=== PATIENT | female | born 1950 | race Caucasian/White ===

== ENCOUNTER 2016-12-04 18:48 | Emergency (ER) | payer OTHER ==
[~2016-12-04] VITALS: Ht 160 cm; Wt 55.8 kg
[~2016-12-04 18:48] MED LIST: AMOXICILLIN875 M1 PO; ANTIVERT25 MG PO; EXTENDED PHENY100 MG PO; FLEXERIL10 MG PO; HYDROXYZINE50 MG PO; MOTRIN 600 MG600 MG PO; PREDNICOT20 MG PO
--- NOTE | 2016-12-04 19:57 | ED GENERAL ADULT ---
History of Present Illness General Chief Complaint: General Adult Stated Complaint: "I FEEL CONFUSED AT TIMES" Source: patient Exam Limitations: no limitations Vital Signs & Intake/Output Vital Signs & Intake/Output Vital Signs Date Time Temp Pulse Resp B/P Pulse O2 O2 Flow FiO2 Ox Delivery Rate 12/04 2135 98.1 74 18 122/70 96 Room Air 12/04 1900 97.3 80 20 116/75 97 Room Air ED Intake and Output 12/05 0000 12/04 1200 Intake Total Output Total Balance Patient 123 lb Weight Allergies Coded Allergies: NO KNOWN ALLERGIES (12/04/16) Reconcile Medications Aspirin (Ecotrin*) 81 MG TABLET.DR 1 TAB PO DAILY HEART/BLOOD (Reported) Linagliptin (Tradjenta) 5 MG TABLET 1 TAB PO DAILY DM (Reported) Lisinopril 5 MG TABLET 1 TAB PO DAILY BP (Reported) Phenytoin Sodium Extended 100 MG CAPSULE 2 CAP PO BID SEIZURES (Reported) Triage Note: TRIAGE: PT TO ER C/C "I'M ON HIGH BLOOD PRESSURE. I READ IT LAST NIGHT. SIDE EFFECTS ARE TIRED. I FEEL TIRED A LOT. OTHER SIDE EFFECTS ARE WEAKNESS AND I FEEL WEAK A LOT. ALSO I FEEL CONFUSED AT TIMES." DENIES FEELING CONFUSED AT PRESENT. DENIES ANY PAIN. ALSO REPORTS R EAR "MAKES A WEIRD SOUND AT TIMES, IT FEELS BOUNCY". Triage Nurses Notes Reviewed? yes Onset: Abrupt Duration: gone now, intermittent Timing: remote history Injury Environment: home Severity: moderate Severity Numbers: 5 No Modifying Factors: none HPI: Patient is a 66-year-old female with a past medical history of hypertension, type 2 diabetes, and seizure disorder currently compliant with Dilantin who presents to emergency room with a one year history of lightheaded sensation and feeling off and generalized weakness. Patient states that symptoms have begun since she was prescribed lisinopril about a year ago by her primary care doctor for blood pressure. Patient states that when she wakes up every morning she gets up and feels lightheaded and dizzy and has had complaints of weakness. Blood pressure is unknown at this time however she does fingerstick for blood glucose and noted to have normal ranges per patient Patient states that as she eats breakfast and food and as time goes on throughout the day she feels much more improved. Denies any current fever chills headache pain neck stiffness chest pain arm pain jaw pain nausea vomiting paresthesia cough hemoptysis. Patient states that she was reading online of the adverse reactions to lisinopril and she became concerned and this is why patient Presents the emergency room Denies any dysuria hematuria vaginal bleeding vaginal discharge (CHIRAG ZAMBRANO) Past History Travel History Traveled to [place] past 21 day No Medical History Any Pertinent Medical History? see below for history Neurological: seizure EENT: NONE Cardiovascular: hypertension Respiratory: NONE Gastrointestinal: NONE Hepatic: NONE Renal: NONE Musculoskeletal: NONE Psychiatric: NONE Endocrine: diabetes Blood Disorders: NONE Cancer(s): NONE BUSINESS INTELLIGENCE ANALYST/Reproductive: NONE Surgical History Surgical History: non-contributory Psychosocial History Who do you live with Son Services at Home None What is your primary language Azeri Tobacco Use: Current Daily Use Daily Tobacco Use Amount/Type: => 5 Cigarettes daily ETOH Use: denies use Illicit Drug Use: denies illicit drug use Family History Hx Contributory? No (CHIRAG ZAMBRANO) Review of Systems Review of Systems Constitutional: Reports: see HPI, weakness. EENTM: Reports: no symptoms. Respiratory: Reports: no symptoms. Cardiovascular: Reports: no symptoms. GI: Reports: no symptoms. Genitourinary: Reports: no symptoms. Musculoskeletal: Reports: no symptoms. Skin: Reports: no symptoms. Neurological/Psychological: Reports: no symptoms. Hematologic/Endocrine: Reports: no symptoms. Immunologic/Allergic: Reports: no symptoms. All Other Systems: Reviewed and Negative (CHIRAG ZAMBRANO) Physical Exam Physical Exam General Appearance: no apparent distress, alert, comfortable Comments: Well-developed well-nourished person in no acute distress HEENT: Normal EENT exam, extraocular motion intact, no nystagmus. Pupils equally round and reactive to light and accommodation. Nose is atraumatic. External auditory canal and Tympanic membranes clear. Pharynx normal. No swelling or edema. Neck: Supple, no lymphadenopathy, normal range of motion without pain or tenderness Back: Nontender, no CVA tenderness. Cardiovascular: Regular rate and rhythms no murmurs rubs or gallops, normal JVP Respiratory: Chest nontender. No respiratory distress.breath sounds clear to auscultation bilaterally Abdomen: Soft, nontender nondistended, no appreciable organomegaly. Normal bowel sounds. No ascites Extremity: No edema, no calf tenderness to palpation, normal and equal pulses. Neuro: Alert oriented x3, motor sensory normal, cranial nerves II through XII grossly intact. Skin: No appreciable rash on exposed skin, skin is warm and dry. Psych: Mood and affect is normal, memory and judgment is normal. Core Measures ACS in differential dx? No CVA/TIA Diagnosis: No Severe Sepsis Present: No Septic Shock Present: No (CHIRAG ZAMBRANO) Progress Differential Diagnoses I considered the following diagnoses in my evaluation of the patient: [ electrolyte abnormality, cancer, adverse drug reaction, cardiac arrhythmia,] Plan of Care: Orders Procedure Date/time Status EKG 12/04 2040 Active MAGNESIUM 12/04 2027 Complete DILANTIN 12/04 2027 Complete COMPREHENSIVE METABOLIC PANEL 12/04 2027 Complete CBC WITHOUT DIFFERENTIAL 12/04 2027 Complete Laboratory Tests 12/04/162036: Anion Gap 8, Estimated GFR > 60, BUN/Creatinine Ratio 22.9, Glucose 100 H, Calcium 9.4, Magnesium 2.1, Total Bilirubin 0.4, AST 20, ALT 43, Alkaline Phosphatase 77, Total Protein 7.1, Albumin 4.4, Globulin 2.7, Albumin/Globulin Ratio 1.6, CBC w Diff NO MAN DIFF REQ, RBC 4.77, MCV 93.8, MCH 31.8 H, RDW 14.1 , MPV 7.1 L, Gran % 48.9, Lymphocytes % 38.0, Monocytes % 8.9, Eosinophils % 3.2, Basophils % 1.0, Absolute Granulocytes 2.9, Absolute Lymphocytes 2.2, Absolute Monocytes 0.5, Absolute Eosinophils 0.2, Absolute Basophils 0.1, PUBS MCHC 33.8, Phenytoin 21.5 H Patient currently is asymptomatic and had unremarkable blood work and EKG. Patient had normal steady gait. I initially had discussion with patient of concerns of adverse reaction to lisinopril however she declined to change his medication and wanted her primary care to do this instead of ME. On discharge patient looks well was given copies of blood work and will follow up with primary care doctor and had no questions. (CHIRAG ZAMBRANO) Initial ED EKG: SINUS RHYTHM 64 BPM Prior EKG: unchanged (CHIRAG ZAMBRANO) Departure Departure Disposition: HOME OR SELF CARE Condition: Stable Clinical Impression Primary Impression: Lightheaded Referrals: TALHA MICHELLE APRN (PCP/Family) Additional Instructions: As discussed continue home medications as directed and on Wednesday follow-up with your primary care doctor if symptoms persist. If symptoms worsen return to the emergency room Departure Forms: Customer Survey General Discharge Information (CHIRAG ZAMBRANO) PA/CHOPPER FEEDER Co-Sign Statement Statement: ED Attending supervision documentation- [] I saw and evaluated the patient. I have also reviewed all the pertinent lab results and diagnostic results. I agree with the findings and the plan of care as documented in the PA's/CHOPPER FEEDER's documentation. [x] I have reviewed the ED Record and agree with the PA's/CHOPPER FEEDER's documentation. [] Additions or exceptions (if any) to the PAs/CHOPPER FEEDER's note and plan are summarized below: [] (AARON OROZCO,CARMEN Scanlon) Critical Care Note Critical Care Note Critical Care Time: non-applicable (CHIRAG ZAMBRANO)
[2016-12-04] MEDS ORDERED: TRADJENTA5 M1 PO (20:13)
[2016-12-04] MEDS ORDERED: LISINOPRIL5 M1 PO (20:13)
[2016-12-04] MEDS ORDERED: ASPIRIN EC81 M1 PO (20:14)
[2016-12-04] MEDS ORDERED: PHENYTOIN SODI100 MG PO (20:14)
[2016-12-04 20:48] LABS: ABSOLUTE BASOPHIL COUNT 0.1 /CUMM (0.0-0.2); ABSOLUTE EOSINOPHIL COUNT 0.2 /CUMM (0.0-0.7); ABSOLUTE GRANULOCYTE CT 2.9 /CUMM (1.4-6.5); ABSOLUTE LYMPH COUNT 2.2 /CUMM (1.2-3.4); ABSOLUTE MONOCYTE COUNT 0.5 /CUMM (0.10-0.60); EOSINOPHIL % 3.2 % (0-5); GRANULOCYTE % 48.9 % (42.2-75.2); HEMATOCRIT 44.8 % (37-47); MEAN CORPUSCULAR HGB 31.8 PG (27.0-31.0); MEAN CORPUSCULAR HGB CONC 33.8 G/DL (33.0-37.0); MEAN CORPUSCULAR VOLUME 93.8 FL (81.0-99.0); MEAN PLATELET VOLUME 7.1 FL (7.4-10.4); PLATELET COUNT 215 /CUMM (130-400); RBC DISTRIBUTION WIDTH 14.1 % (11.5-14.5); RED BLOOD CELL CT 4.77 /CUMM (4.20-5.40); WHITE BLOOD CELL COUNT 5.9 /CUMM (4.8-10.8)
[2016-12-04 21:35] VITALS: BP 122/70
== END 2016-12-04 21:45 ==
LOC: ERH 18:48
PROVIDERS: Physician Assistant
DX: R42 Dizziness and giddiness (principal)
CPT/HCPCS: 93005; 93010